=== PATIENT | male | born 1965 | race Caucasian/White ===

== ENCOUNTER → 2018-07-13 09:09 | Outpatient (CLI) | payer MEDICARE, MEDICAID, SELFPAY ==
--- NOTE | 2018-07-13 09:15 | XR_ITS ---
XR shoulder LT min 2V HISTORY: ITS.REASON: left shoulder pain ORDERING PHYSICIAN: Anne Ambrocio MD PATIENT AGE: 53 years Comparison: None FINDINGS: No fracture or dislocation. No lytic or blastic change. There is normal mineralization. The joint spaces are well-preserved. No significant degenerative/arthritic changes. No erosive changes evident. Small subcortical lucencies are present at the greater tuberosity which may be seen with inflammatory change and rotator cuff disease. No subacromial stenosis. IMPRESSION: Subcortical lucencies of the greater tuberosity consistent with underlying inflammatory/arthritic change otherwise negative left shoulder
--- NOTE | 2018-07-13 09:15 | XR_ITS ---
XR shoulder RT min 2V HISTORY: ITS.REASON: right shoulder pain ORDERING PHYSICIAN: Anne Ambrocio MD PATIENT AGE: 53 years Comparison: None TECHNIQUE: 4 views obtained including axillary view FINDINGS: No fracture or dislocation. No lytic or blastic change. There is normal mineralization. The joint spaces are well-preserved. No significant degenerative/arthritic changes. No erosive changes evident. IMPRESSION: Negative, no acute finding
--- NOTE | 2018-07-13 10:57 | XR_ITS ---
EXAM: XR cervical spine 2V HISTORY: Cervicalgia, bilateral shoulder pain ITS.REASON: AP LAT ORDERING PHYSICIAN: Anne Ambrocio MD PATIENT AGE: 53 years COMPARISON: None FINDINGS: There is slight reversal of the cervical lordosis. Degenerative disc disease is present at C4-C5 C5-C6 and C6-C7 with decrease in the disc space and endplate osteophytes. No fracture or dislocation. No lytic or blastic change. Incidental note made of craniotomy. IMPRESSION: Mild degenerative disc disease with slight reversal lordosis which may be due to patient positioning or muscle spasm
== END ==
PROVIDERS: PCP Internal Medicine Adolescent Medicine; Visit Provider Orthopaedic Surgery
DX: M25.511 Pain in right shoulder (principal); M25.512 Pain in left shoulder; M54.2 Cervicalgia
CPT/HCPCS: 72040; 73030

== ENCOUNTER → 2018-10-30 11:49 | Outpatient (CLI) | payer MEDICARE, MEDICAID, SELFPAY ==
[2018-10-30 12:02] LABS: Basophils # 0.1 K/mm3 (0-0.2); Basophils % 0.8 % (0.1-2.0); Eosinophils # 0.4 K/mm3 (0.0-0.4); Eosinophils % 4.4 % (0.1-12.0); Hematocrit 44.8 % (42.0-52.0); Hemoglobin 14.2 g/dL (14.1-18.0); Lymphocytes # 2.2 K/mm3 (0.7-4.5); Lymphocytes % 21.4 % (10-50); Mean Corpuscular HGB Conc 31.7 g/dL (31.8-35.4); Mean Corpuscular Volume 91.4 fl (80-94); Mean Platelet Volume 10.2 fl (7.4-10.4); Monocytes # 0.5 K/mm3 (0.1-1.0); Monocytes % 4.5 % (1.7-9.3); Platelet Count 166 K/mm3 (142-424); White Blood Count 10.1 K/mm3 (4.8-10.8)
[2018-10-30 12:41] LABS: Alanine Aminotransferase 30 U/L (12-78); Albumin Level 3.7 gm/dL (3.4-5.0); Albumin/Globulin Ratio 1.1 (1.1-1.8); Alkaline Phosphatase 202 U/L (46-116); Anion Gap 13.2 mEq/L (5-15); Aspartate Amino Transferase 11 U/L (15-37); Bilirubin,Total 0.4 mg/dL (0.2-1.0); Blood Urea Nitrogen 20 mg/dL (7-18); Calcium 8.9 mg/dL (8.5-10.1); Carbon Dioxide 28 mmol/L (21.0-32.0); Chloride 105 mmol/L (98-107); Chol/HDL Ratio 4.3 (1-3.5); Cholesterol 136 mg/dL (140-200); Creatinine,Serum 1.19 mg/dL (0.70-1.30); Estimated Glomerular Filt Rate 64 ml/min (>60); GFR (African American) 78 ML/MIN (>60); Globulin 3.5 gm/dl (1.3-3.2); Glucose 86 mg/dL (74-106); HDL Cholesterol 32 mg/dL (27-67); LDL Cholesterol 89 mg/dL (0-130); Potassium 4.2 mmoL/L (3.5-5.1); Sodium 142 mmol/L (136-145); Thyroid Stimulating Hormone 1.43 uIU/ml (0.358-3.740); Total Protein,Serum 7.2 gm/dL (6.4-8.2); Triglycerides 76 mg/dL (30-200); VLDL Cholesterol 15 mg/dL (0-40)
[2018-10-30 14:03] LABS: Hemoglobin A1C 6.5 % (0.0-7.0)
== END ==
PROVIDERS: Visit Provider Internal Medicine Adolescent Medicine
DX: E78.5 Hyperlipidemia, unspecified (principal); E11.69 Type 2 diabetes mellitus with other specified complication; R53.81 Other malaise
CPT/HCPCS: 36415; 80053; 80061; 83036; 84443; 85025

== ENCOUNTER → 2019-11-16 11:55 | Outpatient (CLI) | payer MEDICARE, MEDICAID, SELFPAY ==
[2019-11-16 15:12] LABS: Basophils # 0.1 K/mm3 (0-0.2); Basophils % 0.9 % (0.1-2.0); Eosinophils # 0.3 K/mm3 (0.0-0.4); Eosinophils % 4.3 % (0.1-12.0); Hematocrit 41.4 % (42.0-52.0); Hemoglobin 13.7 g/dL (14.1-18.0); Lymphocytes # 2.2 K/mm3 (0.7-4.5); Lymphocytes % 31.7 % (10-50); Mean Corpuscular Hemoglobin 30.1 pg (27.0-31.2); Mean Corpuscular Volume 91.3 fl (80-94); Mean Platelet Volume 10.2 fl (7.4-10.4); Monocytes # 0.3 K/mm3 (0.1-1.0); Monocytes % 3.7 % (1.7-9.3); Neutrophils # 4.1 K/mm3 (1.8-7.8); Neutrophils % 59.2 % (37.0-80.0); Platelet Count 172 K/mm3 (142-424); Red Blood Count 4.54 M/mm3 (4.60-6.20); White Blood Count 6.9 K/mm3 (4.8-10.8)
[2019-11-16 16:04] LABS: Alanine Aminotransferase 36 U/L (12-78); Albumin Level 4.4 g/dl (3.5-5.0); Albumin/Globulin Ratio 1.4 (1.1-1.8); Alkaline Phosphatase 158 U/L (38-126); Anion Gap 11.9 mEq/L (5-15); Aspartate Amino Transferase 28 U/L (17-59); Bilirubin,Total 0.2 mg/dl (0.2-1.3); Blood Urea Nitrogen 28 mg/dl (9-20); Calcium 9.6 mg/dl (8.4-10.2); Carbon Dioxide 28 mmol/L (22.0-30.0); Chloride 101 mmol/L (98-107); Estimated Glomerular Filt Rate 70 ml/min (>60); GFR (African American) 85 ML/MIN (>60); Globulin 3.1 g/dL (1.3-3.2); Glucose 218 mg/dl (74-100); Potassium 4.9 mmoL/L (3.5-5.1); Sodium 136 mmol/L (136-145); Total Protein,Serum 7.5 g/dl (6.3-8.2)
[2019-11-16 16:40] LABS: Ferritin 47.5 ng/ml (17.9-464)
[2019-11-19 14:05] LABS: Folate 6.5 ng/mL (>3.0)
[2019-11-21 08:38] LABS: Vitamin E Alpha Tocopherol 18.5 mg/L (7.0-25.1)
[2019-11-23 11:22] LABS: Vitamin C 0.2 mg/dL (0.2-2.0)
[2019-11-23 11:23] LABS: Vitamin A 66.8 ug/dL (20.1-62.0); Vitamin E Gamma Tocopherol 4.6 mg/L (0.5-5.5)
== END ==
PROVIDERS: Visit Provider Internal Medicine Adolescent Medicine
DX: F50.89 Other specified eating disorder (principal)
CPT/HCPCS: 36415; 80053; 82180; 82728; 82746; 84446; 84590; 85025

== ENCOUNTER → 2020-02-07 10:46 | Outpatient (CLI) | payer MEDICARE, MEDICAID, SELFPAY ==
[2020-02-07 14:15] LABS: Coronavirus 19 IgG Antibody Negative (Negative)
[2020-02-07 14:20] LABS: Coronavirus 19 IgM Antibody Positive (Negative)
[2020-02-09 13:31] LABS: Covid-19 Nasal PCR Sendout Lex Not Detected
== END ==
PROVIDERS: Visit Provider Internal Medicine Gastroenterology
DX: Z01.818 Encounter for other preprocedural examination (principal); U07.1 COVID-19
CPT/HCPCS: 36415; 86328; U0004

== ENCOUNTER → 2020-02-11 17:10 | Outpatient (CLI) | payer MEDICARE, MEDICAID, SELFPAY ==
[2020-02-11 18:47] LABS: Coronavirus 19 IgG Antibody Negative (Negative); Coronavirus 19 IgM Antibody Negative (Negative)
[2020-02-14 06:58] LABS: Covid-19 Nasal PCR Sendout Lex NOT DETECTED
== END ==
PROVIDERS: Visit Provider Internal Medicine Adolescent Medicine
DX: Z20.828 Contact with and (suspected) exposure to other viral communicable diseases (principal)
CPT/HCPCS: 36415; 86328; U0004

== ENCOUNTER → 2020-03-13 10:12 | Outpatient (CLI) | payer MEDICARE, MEDICAID, SELFPAY ==
[2020-03-13 12:06] LABS: Coronavirus 19 IgG Antibody Negative (Negative); Coronavirus 19 IgM Antibody Negative (Negative)
== END ==
PROVIDERS: Visit Provider Internal Medicine Gastroenterology
DX: Z01.818 Encounter for other preprocedural examination (principal)
CPT/HCPCS: 36415; 86328

== ENCOUNTER 2020-03-14 10:08 | Day surgery (SDC) | payer MEDICARE, MEDICAID, SELFPAY ==
[2020-03-10 16:36] VITALS: BMI 34.7
[2020-03-14] VITALS (7 sets, daily range): BP systolic 90–140; BP diastolic 65–81; PULSE 67–75; RESP 18; TEMP 36.3; O2SAT 96–99
--- NOTE | 2020-03-14 12:29 | HMH.ANESCL ---
[facility] Anesthesia Checklist - Patient Identification Patient Identification: Arm Band - Structural Data Admitted From: Home Planned Operative Procedure/s: colonoscopy Consent for Planned Operative Procedure(s) Verified: Yes Verified Documents: Surgical Consent, History and Physical - NPO Status Verified Time NPO: 00:00 - Additional verifications Anesthesia Reactions: No - Airway Assessment C-Spine Mobility Assessed: Yes (mp2) TMJ Mobility Assessed: Yes Dentition: Edentulous - Neurological Assessment Level of Consciousness: Awake, Alert - Anesthesia Plan Anesthesia Risk discussed: Yes Anesthesia Plan: Verified ASA Class: III Anesthesia Type: MAC [facility] History I have reviewed the patient's past medical history: Yes Medical History: Reports:: Chronic Obstructive Pulmonary Disease (COPD), Diabetes Mellitus Type 2, Hyperlipidemia, Transient Ischemic Attacks (TIA) Denies:: Cancer, Diabetes Mellitus Type 1, Internal Pacemaker, MRSA, Seizures *Have you ever received a pneumonia vaccine?: No *Have you received a flu vaccine this season?: Yes Anesthesia experience/problems:: nac Laterality Cases: Left: Other Other Surgeries: Yes: Other (evacuation of subdural hematoma). No: Pacemaker Amputation: No Fractures: No - *Social History Last grade of school completed: High school graduate Smoking Status: Current every day smoker Tobacco Type: cigarettes # Packs/Day (cigarettes): 1 #Yrs smoked (if former smoker): 30 Alcohol Intake: never Substance Use Type: denies use *Occupational Status:: unemployed, disabled Housing: house Household Members: spouse *Travel in the last 8 weeks: None Family Hx:: Diabetes, Heart Attack, Hyperlipidemia, Hypertension, Alcoholism
[2020-03-14 12:35] LABS: POC Glucose,Bedside 158 (70-110)
--- NOTE | 2020-03-14 12:54 | HMH.PROC ---
[facility] Procedure Note Procedure Note:: Colonoscopy Procedure Report: Colonoscopy with cold snare polypectomy Endoscopist: Luke Malcolm II, MD Referring physician: Domenico Blackwell M.D. Date of Procedure: March 14, 2020 Equipment: Olympus 180 variable stiffness pediatric colonoscope Sedation: MAC sedation Indication: Mr. Alonso is a 54-year-old gentleman who is here for initial screening colonoscopy. He reports no abdominal pain, weight loss, change in his bowel habits or rectal bleeding. He reports no family history of colon cancer. Procedure: Prior to the procedure, a history and physical exam was performed, and patient's medications and allergies were reviewed. The risks, benefits and alternatives of the sedation and procedure were discussed with the patient. All questions were answered and informed consent was obtained. The patient was brought to the procedure room. Patient identification and proposed procedure were verified by the physician and the nurse. The patient was placed in a left lateral decubitus position and the scope was passed under direct vision. Throughout the procedure, the patient's blood pressure, pulse, and oxygen saturations were monitored continuously. The colonoscopy was accomplished without difficulty. The patient tolerated the procedure well. Findings: On digital rectal examination there was normal rectal tone. There were no external hemorrhoids. The prostate was 2-3+, smooth, soft, symmetric without nodules. The colonoscope was introduced through the anal canal to the rectum and advanced to the cecum. The ileocecal valve and appendiceal orifice were identified. The scope was advanced a short distance into the ileum which appeared grossly normal. The scope was then withdrawn into the colon. The cecum was normal. There were a total of 9 colon polyps (ascending x1 (3 mm), transverse x2 (4 and 6 mm), descending x2 (5 and 7 mm), sigmoid x3 (3, 4 and 8 mm) and rectum x1 (3 mm)). All of these polyps were removed via cold snare polypectomy. There were no other mucosal abnormalities identified. Upon retroflexion within the rectum there were grade 1-2 internal hemorrhoids.The preparation was excellent throughout with Saxon Preparation Score of 9. The cecal time was 14 minutes. Impression: 1. Colonic polyps x9 2. Grade 1-2 internal hemorrhoids Plan: I will follow up the polyp pathology and recommend repeat colonoscopy again in 2-3 years based upon the polyp histology. I would encourage bulk fiber supplementation on a long-term daily maintenance basis.
== END 2020-03-14 13:46 | disposition home or self-care (01) ==
LOC: OUTP 10:10
PROVIDERS: PCP Internal Medicine Adolescent Medicine; Visit Provider Internal Medicine Gastroenterology
PROC: 0DJD8ZZ Inspection of Lower Intestinal Tract, Via Natural or Artificial Opening Endoscopic (ICD-10-PCS; CPT 45378; principal; 2020-03-14 11:30)
DX: Z12.11 Encounter for screening for malignant neoplasm of colon (principal); K63.5 Polyp of colon; K64.0 First degree hemorrhoids; E11.9 Type 2 diabetes mellitus without complications; J44.9 Chronic obstructive pulmonary disease, unspecified; E78.5 Hyperlipidemia, unspecified; G45.9 Transient cerebral ischemic attack, unspecified; Z72.0 Tobacco use; Z83.3 Family history of diabetes mellitus; Z82.49 Family history of ischemic heart disease and other diseases of the circulatory system; Z83.438 Family history of other disorder of lipoprotein metabolism and other lipidemia; Z81.1 Family history of alcohol abuse and dependence
CPT/HCPCS: 45385; 82962; 88305

== ENCOUNTER → 2020-09-08 11:48 | Outpatient (CLI) | payer MEDICARE, MEDICAID, SELFPAY ==
--- NOTE | 2020-09-08 11:55 | XR_ITS ---
PROCEDURE: XR KNEE RT 3V CLINICAL INDICATION: OSTEOARTHRITIS OF KNEE Knee pain COMPARISON: No exams were available for comparison FINDINGS: No fracture or dislocation. No lytic or blastic change. There is normal mineralization. The joint spaces are well-preserved. No significant degenerative/arthritic changes. No erosive changes evident. Other findings:None. IMPRESSION: No acute findings. Dictated by: Jg Dhaliwal MD 09/08/2020 15:23 Jg Dhaliwal MD in [place] 09/08/2020 15:23
--- NOTE | 2020-09-08 11:55 | XR_ITS ---
PROCEDURE: XR KNEE LT 3V CLINICAL INDICATION: OSTEOARTHRITIS OF KNEE The pain COMPARISON: DX XR KNEE RT 3V from 09/08/2020 FINDINGS: No fracture or dislocation. No lytic or blastic change. There is normal mineralization. There is slight decrease in the knee joint space medially. Minimal spurring noted along posterior patella. Other findings:None. IMPRESSION: Minimal osteoarthritic change Dictated by: Jg Dhaliwal MD 09/08/2020 15:24 Jg Dhaliwal MD in [place] 09/08/2020 15:24
== END ==
PROVIDERS: PCP Internal Medicine Adolescent Medicine; Visit Provider Internal Medicine Adolescent Medicine
DX: M17.0 Bilateral primary osteoarthritis of knee (principal)
CPT/HCPCS: 73562

== ENCOUNTER → 2020-11-19 11:42 | Outpatient (CLI) | payer MEDICARE, MEDICAID, SELFPAY ==
--- NOTE | 2020-11-19 11:51 | XR_ITS ---
PROCEDURE: XR KNEE RT 4V CLINICAL INDICATION: right knee pain COMPARISON: DX XR KNEE RT 3V from 09/08/2020 DX XR KNEE LT 3V from 09/08/2020 FINDINGS: No fracture or dislocation. No lytic or blastic change. There is normal mineralization. The joint spaces are well-preserved. No significant degenerative/arthritic changes. No erosive changes evident. Other findings:None. IMPRESSION: No acute findings. Dictated by: Jg Dhaliwal MD 11/19/2020 12:39 Jg Dhaliwal MD in [place] 11/19/2020 12:41
--- NOTE | 2020-11-19 11:51 | XR_ITS ---
PROCEDURE: XR KNEE LT 4V CLINICAL INDICATION: left knee pain; weightbearing COMPARISON: DX XR KNEE RT 3V from 09/08/2020 DX XR KNEE LT 3V from 09/08/2020 FINDINGS: Minimal spurring along the posterior aspect of the patella laterally. There may be a small suprapatellar effusion. Small enthesophyte is present at the quadriceps insertion the patella. No acute fracture or dislocation. No lytic or blastic change Other findings:None. IMPRESSION: Minimal osteoarthritic changes with possible small knee joint effusion. Dictated by: Jg Dhaliwal MD 11/19/2020 12:52 Jg Dhaliwal MD in [place] 11/19/2020 12:52
--- NOTE | 2020-11-19 13:55 | XR_ITS ---
PROCEDURE: XR HIP LT 2-3V W/PELVIS CLINICAL INDICATION: bilateral knee pain Pain COMPARISON: No exams were available for comparison FINDINGS: Small sclerotic focus is present in the inter trochanteric region of the left hip consistent with small bone island. No fracture or dislocation. No lytic or blastic change. No significant degenerative change. Small bone islands are also present in the right ischium and inferior pubic ramus. IMPRESSION: No acute findings. Dictated by: Jg Dhaliwal MD 11/19/2020 15:45 Jg Dhaliwal MD in [place] 11/19/2020 15:45
--- NOTE | 2020-11-19 13:55 | XR_ITS ---
PROCEDURE: XR HIP RT 2-3V W/PELVIS CLINICAL INDICATION: bilateral knee pain Hip pain COMPARISON: No exams were available for comparison FINDINGS: No fracture or dislocation is evident. No significant degenerative change. No lytic or blastic change. Unremarkable soft tissues. IMPRESSION: No acute findings. Dictated by: Jg Dhaliwal MD 11/19/2020 15:46 Jg Dhaliwal MD in [place] 11/19/2020 15:46
== END ==
PROVIDERS: PCP Internal Medicine Adolescent Medicine; Visit Provider Orthopaedic Surgery
DX: M25.562 Pain in left knee (principal); M25.561 Pain in right knee; M25.551 Pain in right hip; M25.552 Pain in left hip
CPT/HCPCS: 73502; 73564

== ENCOUNTER → 2021-02-09 10:44 | Outpatient (CLI) | payer MEDICARE, MEDICAID, SELFPAY ==
[2021-02-09 11:31] LABS: Basophils # 0.1 K/mm3 (0-0.2); Basophils % 1.1 % (0.1-2.0); Eosinophils # 0.4 K/mm3 (0.0-0.4); Hematocrit 45.2 % (42.0-52.0); Hemoglobin 15.6 g/dL (14.1-18.0); Lymphocytes # 2.5 K/mm3 (0.7-4.5); Lymphocytes % 29.8 % (10-50); Mean Corpuscular HGB Conc 34.5 g/dL (31.8-35.4); Mean Corpuscular Hemoglobin 30.4 pg (27.0-31.2); Mean Corpuscular Volume 88.2 fl (80-94); Mean Platelet Volume 10.2 fl (7.4-10.4); Monocytes # 0.3 K/mm3 (0.1-1.0); Monocytes % 3.7 % (1.7-9.3); Neutrophils # 5.1 K/mm3 (1.8-7.8); Neutrophils % 60.3 % (37.0-80.0); Platelet Count 147 K/mm3 (142-424); Red Blood Count 5.13 M/mm3 (4.60-6.20); Red Cell Distribution Width 14.2 % (11.5-17.5); White Blood Count 8.4 K/mm3 (4.8-10.8)
[2021-02-09 11:53] LABS: Hemoglobin A1C 7.8 % (4.0-6.0)
[2021-02-09 12:12] LABS: Alanine Aminotransferase 31 U/L (12-78); Albumin Level 4.6 g/dl (3.5-5.0); Albumin/Globulin Ratio 1.5 (1.1-1.8); Alkaline Phosphatase 189 U/L (38-126); Anion Gap 10.8 mEq/L (5-15); Aspartate Amino Transferase 29 U/L (17-59); Bilirubin,Total 0.6 mg/dl (0.2-1.3); Blood Urea Nitrogen 26 mg/dl (9-20); Calcium 8.8 mg/dl (8.4-10.2); Carbon Dioxide 24 mmol/L (22.0-30.0); Chloride 108 mmol/L (98-107); Chol/HDL Ratio 8.7 (1-3.5); Cholesterol 306 mg/dl (140-200); Estimated Glomerular Filt Rate 63 ml/min (>60); GFR (African American) 76 ML/MIN (>60); Globulin 3.1 g/dL (1.3-3.2); Glucose 181 mg/dl (74-100); HDL Cholesterol 35 mg/dl (40-60); Potassium 4.8 mmoL/L (3.5-5.1); Sodium 138 mmol/L (136-145); Total Protein,Serum 7.7 g/dl (6.3-8.2)
[2021-02-09 12:25] LABS: Direct LDL Cholesterol 174.13 mg/dL (100-129)
[2021-02-09 12:28] LABS: Triglycerides 656 mg/dl (30-150)
[2021-02-09 12:45] LABS: Thyroid Stimulating Hormone 1.09 uIU/mL (0.465-4.68)
== END ==
PROVIDERS: Visit Provider Internal Medicine Adolescent Medicine
DX: E11.9 Type 2 diabetes mellitus without complications (principal); E78.5 Hyperlipidemia, unspecified; G63 Polyneuropathy in diseases classified elsewhere; Z79.4 Long term (current) use of insulin
CPT/HCPCS: 36415; 80053; 80061; 83036; 84443; 85025

== ENCOUNTER → 2021-04-01 12:33 | Outpatient (CLI) | payer MEDICARE, MEDICAID, SELFPAY ==
[2021-04-01 13:22] LABS: Potassium 5.2 mmoL/L (3.5-5.1)
[2021-04-01 13:24] LABS: Blood Urea Nitrogen 29 mg/dl (9-20); Estimated Glomerular Filt Rate 53 ml/min (>60); GFR (African American) 64 ML/MIN (>60)
[2021-04-01 13:25] LABS: Calcium 9.4 mg/dl (8.4-10.2)
[2021-04-01 13:34] LABS: Glucose 426 mg/dl (74-100)
[2021-04-01 14:33] LABS: Vitamin B12 709 pg/mL (239-931)
[2021-04-01 14:39] LABS: Folate 6.33 ng/mL
[2021-04-01 17:49] LABS: Anion Gap 14.2 mEq/L (5-15); Carbon Dioxide 26 mmol/L (22.0-30.0); Chloride 101 mmol/L (98-107); Sodium 136 mmol/L (136-145)
== END ==
PROVIDERS: Nurse Practitioner Family; Visit Provider Specialist
DX: E78.5 Hyperlipidemia, unspecified (principal); G47.19 Other hypersomnia; R06.83 Snoring; R42 Dizziness and giddiness; R46.89 Other symptoms and signs involving appearance and behavior; Z86.69 Personal history of other diseases of the nervous system and sense organs; Z86.79 Personal history of other diseases of the circulatory system
CPT/HCPCS: 36415; 80048; 82607; 82746

== ENCOUNTER → 2021-04-02 09:50 | Outpatient (CLI) | payer MEDICARE, MEDICAID, SELFPAY ==
--- NOTE | 2021-04-02 09:50 | MR_ITS ---
PROCEDURE: MR HEAD/BRAIN WO/W CON CLINICAL INDICATION: special attn brain stem and inner ear Tremors in rt arm. Slurred speech and stuttering. Balance issues. Headaches x3wks. Previous brain surgery for subdural hematoma. COMPARISON: CT HDW CT HEAD W/ CONTRAST from 05/17/2016 TECHNIQUE: Routine multiplanar multi echo sequences are performed without and with gadolinium enhancement. FINDINGS: No midline shift, mass effect, intracranial hemorrhage, or hydrocephalus is evident. The cerebellopontine angles, cerebellum, and brainstem have an unremarkable appearance. There are few nonspecific T2 white matter hyperintensities in the frontal and parietal lobes. These areas do not demonstrate restricted diffusion or contrast enhancement. No enhancing lesions are evident. Thin section pre and post axial and coronal images and thin section axial T2 are obtained of the cerebellopontine angles. The 7th and 8th nerve complexes have an unremarkable appearance on both sides. No abnormal enhancement. No CP angle mass. There is a minimal amount fluid within the mastoid sinus on both sides. There is mucosal thickening of the left maxillary sinus with a retention cyst on the left posteriorly at 13 mm and 1 laterally at 7 mm. Mild mucosal thickening involves the ethmoid sinuses and the sphenoid sinus on the right. The pituitary, optic chiasm, corpus callosum, and craniocervical junction have an unremarkable appearance. There has been a prior left-sided frontal parietal craniotomy. IMPRESSION: 1. No acute intracranial findings. 2. No CP angle mass. 3. Minimal amount fluid in the mastoid sinuses and minimal paranasal sinus disease. Dictated by: Jg Dhaliwal MD 04/03/2021 10:54 Jg Dhaliwal MD in [place] 04/03/2021 10:54
== END ==
PROVIDERS: PCP Internal Medicine Adolescent Medicine; Visit Provider Specialist
DX: E78.5 Hyperlipidemia, unspecified (principal); G47.19 Other hypersomnia; R06.83 Snoring; R42 Dizziness and giddiness; R46.89 Other symptoms and signs involving appearance and behavior; Z86.69 Personal history of other diseases of the nervous system and sense organs; Z86.79 Personal history of other diseases of the circulatory system
CPT/HCPCS: 70553; A9576

== ENCOUNTER → 2021-04-15 18:09 | Outpatient (CLI) | payer MEDICARE, MEDICAID, SELFPAY ==
[2021-04-15 11:35] LABS: Coronavirus 19, PCR Not Detected (NotDetected); Influenza A, PCR Not Detected (NotDetected); Influenza B, PCR Not Detected (NotDetected)
== END ==
PROVIDERS: Specialist; Visit Provider Nurse Practitioner Family
DX: Z20.822 Contact with and (suspected) exposure to COVID-19 (principal)
CPT/HCPCS: U0003

== ENCOUNTER → 2021-04-15 19:47 | Outpatient (CLI) | payer MEDICARE, MEDICAID, SELFPAY | PROVIDERS: PCP Internal Medicine Adolescent Medicine; Visit Provider Nurse Practitioner Family | DX: Z01.812 Encounter for preprocedural laboratory examination (principal); Z11.52 Encounter for screening for COVID-19; G47.30 Sleep apnea, unspecified; R06.83 Snoring | CPT/HCPCS: 95810; U0003 ==

== ENCOUNTER → 2021-04-20 09:39 | Outpatient (CLI) | payer MEDICARE, MEDICAID, SELFPAY | PROVIDERS: PCP Internal Medicine Adolescent Medicine; Visit Provider Specialist | DX: R46.89 Other symptoms and signs involving appearance and behavior (principal); R42 Dizziness and giddiness; E78.5 Hyperlipidemia, unspecified; G47.19 Other hypersomnia; R06.83 Snoring; Z86.79 Personal history of other diseases of the circulatory system; Z86.69 Personal history of other diseases of the nervous system and sense organs | CPT/HCPCS: 95816; 95819 ==

== ENCOUNTER → 2021-04-23 09:06 | Outpatient (CLI) | payer MEDICARE, MEDICAID, SELFPAY ==
[2021-04-23 09:31] LABS: Anion Gap 13.9 mEq/L (5-15); Blood Urea Nitrogen 21 mg/dl (9-20); Calcium 9.2 mg/dl (8.4-10.2); Carbon Dioxide 29 mmol/L (22.0-30.0); Chloride 101 mmol/L (98-107); Estimated Glomerular Filt Rate 70 ml/min (>60); GFR (African American) 84 ML/MIN (>60); Glucose 330 mg/dl (74-100); Potassium 4.9 mmoL/L (3.5-5.1); Sodium 139 mmol/L (136-145)
== END ==
PROVIDERS: Visit Provider Nurse Practitioner Family
DX: E87.5 Hyperkalemia (principal); R73.9 Hyperglycemia, unspecified
CPT/HCPCS: 36415; 80048

== ENCOUNTER → 2021-06-26 12:49 | Outpatient (CLI) | payer MEDICARE, MEDICAID, SELFPAY ==
--- NOTE | 2021-06-26 12:51 | CA_ITS ---
APPROVED REPORT Respiratory Director: Verona Trotter RVT Laterality: Bilateral Study Quality: Good Indications: Dizziness and Vertigo Risk Factors Hypertension: Hyperlipidemia Smoking Doppler Spectral Velocity Analysis ECA (R) 82.30/13.90 cm/s ECA (L) 96.20/13.90 cm/s dICA (R) 59.90/21.40 cm/s dICA (L) 89.80/22.50 cm/s Edilberto (R) 70.60/23.50 cm/s Edilberto (L) 56.70/22.50 cm/s pICA (R) 71.60/21.40 cm/s pICA (L) 65.20/16.00 cm/s dCCA (R) 61.00/15.00 cm/s dCCA (L) 51.30/12.80 cm/s pCCA (R) 69.50/12.80 cm/s pCCA (L) 74.90/11.80 cm/s Vert (R) 48.10/20.30 cm/s Vert (L) 43.80/13.90 cm/s ICA/CCA 1.18 ICA/CCA 1.75 Findings Study suggests 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 Study suggests 20-49% stenosis of the left internal cartoid artery. Antegrade flow seen bilateral vertebral arteries. 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 Study suggests 20-49% stenosis of the left internal cartoid artery. Antegrade flow seen bilateral vertebral arteries. Electronically signed by : Jg Dhaliwal MD 06/26/2021 15:36:35
== END ==
PROVIDERS: PCP Internal Medicine Adolescent Medicine; Visit Provider Nurse Practitioner Family
DX: E78.5 Hyperlipidemia, unspecified (principal); G47.19 Other hypersomnia; R06.83 Snoring; R42 Dizziness and giddiness; R46.89 Other symptoms and signs involving appearance and behavior; Z86.69 Personal history of other diseases of the nervous system and sense organs; Z86.79 Personal history of other diseases of the circulatory system
CPT/HCPCS: 93880

== ENCOUNTER → 2021-07-15 14:59 | Outpatient (CLI) | payer MEDICARE, MEDICAID, SELFPAY ==
[2021-07-15 17:22] LABS: 25-OH Vitamin D, Total 19.9 ng/mL (30-100)
== END ==
PROVIDERS: Visit Provider Otolaryngology
DX: Z86.79 Personal history of other diseases of the circulatory system (principal); E55.9 Vitamin D deficiency, unspecified
CPT/HCPCS: 36415; 82306

== ENCOUNTER → 2021-08-17 11:06 | Outpatient (CLI) | payer MEDICARE, MEDICAID, SELFPAY ==
[2021-08-17 11:36] LABS: Basophils # 0.1 K/mm3 (0-0.2); Basophils % 1.2 % (0.1-2.0); Eosinophils # 0.2 K/mm3 (0.0-0.4); Eosinophils % 4.8 % (0.1-12.0); Hematocrit 47.2 % (42.0-52.0); Hemoglobin 15.6 g/dL (14.1-18.0); Lymphocytes # 1.2 K/mm3 (0.7-4.5); Mean Corpuscular Hemoglobin 30.2 pg (27.0-31.2); Mean Corpuscular Volume 91.6 fl (80-94); Mean Platelet Volume 9.8 fl (7.4-10.4); Monocytes # 0.2 K/mm3 (0.1-1.0); Monocytes % 5.1 % (1.7-9.3); Neutrophils # 2.1 K/mm3 (1.8-7.8); Neutrophils % 55.8 % (37.0-80.0); Platelet Count 100 K/mm3 (142-424); Red Blood Count 5.16 M/mm3 (4.60-6.20); Red Cell Distribution Width 13.6 % (11.5-17.5); White Blood Count 3.8 K/mm3 (4.8-10.8)
[2021-08-17 12:59] LABS: Alanine Aminotransferase 38 U/L (12-78); Albumin Level 4.3 g/dl (3.5-5.0); Albumin/Globulin Ratio 1.5 (1.1-1.8); Alkaline Phosphatase 215 U/L (38-126); Anion Gap 11.5 mEq/L (5-15); Aspartate Amino Transferase 31 U/L (17-59); Bilirubin,Total 0.4 mg/dl (0.2-1.3); Blood Urea Nitrogen 17 mg/dl (9-20); Calcium 9.3 mg/dl (8.4-10.2); Carbon Dioxide 29 mmol/L (22.0-30.0); Chloride 101 mmol/L (98-107); Chol/HDL Ratio 7.1 (1-3.5); Cholesterol 263 mg/dl (140-200); Estimated Glomerular Filt Rate 69 ml/min (>60); GFR (African American) 84 ML/MIN (>60); Globulin 2.8 g/dL (1.3-3.2); Glucose 252 mg/dl (74-100); HDL Cholesterol 37 mg/dl (40-60); Potassium 4.5 mmoL/L (3.5-5.1); Sodium 137 mmol/L (136-145); Total Protein,Serum 7.1 g/dl (6.3-8.2); Triglycerides 183 mg/dl (30-150); VLDL Cholesterol 37 mg/dL (0-40)
[2021-08-17 13:10] LABS: Direct LDL Cholesterol 179.55 mg/dL (100-129)
== END ==
PROVIDERS: Visit Provider Internal Medicine Adolescent Medicine
DX: E11.9 Type 2 diabetes mellitus without complications (principal); E78.5 Hyperlipidemia, unspecified; Z79.4 Long term (current) use of insulin
CPT/HCPCS: 36415; 80053; 80061; 83036; 85025

== ENCOUNTER → 2021-11-25 07:52 | Outpatient (CLI) | payer MEDICARE, MEDICAID, SELFPAY ==
--- NOTE | 2021-11-25 07:56 | CT_ITS ---
FINAL REPORT CLINICAL HISTORY: H/O NICOTINE DEPENDENCE smoker, 2 ppd x 40 years. copd, empysema FINDINGS: Low-Dose Chest CT CTDI vol (mGy): 2.90 DLP (mGy-cm): 98.47 Axial images were obtained from the lung apex to the mid abdomen by computed tomography. Low-dose protocol was utilized. FINDINGS: CHEST: There is no axillary adenopathy. There is no hilar or mediastinal adenopathy. The heart is proper size. There is no pericardial or pleural effusion. Limited images of the upper abdomen are unremarkable. Lung window images demonstrate a 3 mm nodule in the left upper lobe, well seen on image 29 of series 4. There is also a 4 mm nodule in the left upper lobe, well seen on image 41 of series 4.. IMPRESSION: Lung RADS category 2. Recommend 12 month follow-up low-dose chest CT. Reviewed, Interpreted and Dictated by Flakito De Paz MD Transcribed by Asya Bermudez Authenticated by Flakito De Paz MD on 11/25/2021 10:28:57 AM [facility]
== END ==
PROVIDERS: PCP Internal Medicine Adolescent Medicine; Visit Provider Internal Medicine Adolescent Medicine
DX: Z87.891 Personal history of nicotine dependence (principal); Z12.2 Encounter for screening for malignant neoplasm of respiratory organs
CPT/HCPCS: 71271

== ENCOUNTER 2024-08-14 14:16 | Outpatient (CLI) | payer MEDICARE, MEDICAID, SELFPAY ==
--- NOTE | 2024-08-14 14:19 | CT_ITS ---
FINAL REPORT TECHNIQUE: Thin section axial images were obtained from the lung apices to the upper abdomen by computed tomography. Reformatted images were obtained and reviewed. This study was performed with techniques to keep radiation doses al low as reasonably achievable (ALARA). Individualized dose reduction techniques using automated exposure control or adjustment of mA and/or kV according to the patient's size were employed. CLINICAL HISTORY: SCREENING CURRENT SMOKER 2 PPD X 40 YEARS COMPARISON: 11/25/2021 FINDINGS: CHEST CT LOW DOSE 59-year-old male, current smoker, [id number] history. CTDI vol (mGy): 2.90 DLP (mGy-cm): 114.11 There is no axillary adenopathy. There is no mediastinal or hilar mass or adenopathy. The heart is normal in size. Mild coronary artery calcifications are present. There is no pericardial or pleural effusion. There is mild emphysema. Lung window images demonstrate that the small left upper lobe nodules seen on the prior LDCT of 11/25/2021 are not visualized on today's examination. There is a new right lower lobe nodule, measuring 4 mm in size, best seen on image #56 of series 3. There is a 10 mm lobular nodule at the left lung base just adjacent to the hemidiaphragm, with eccentric calcification, also seen on the prior CT and stable. This is best seen on image #69 of series 3, and is consistent in appearance with a benign nodule. Limited images of the upper abdomen are unremarkable. IMPRESSION: Lung-RADS category 2. Recommend 12 month follow up low dose chest CT. Reviewed, Interpreted and Dictated by Trevor Barraza III, MD Transcribed by Steffanie Allen Authenticated and . [facility]
== END 2024-08-14 23:59 | disposition home or self-care (01) ==
LOC: RAD 14:17
PROVIDERS: PCP Internal Medicine Adolescent Medicine; Visit Provider Internal Medicine Adolescent Medicine
DX: F17.210 Nicotine dependence, cigarettes, uncomplicated (principal)
CPT/HCPCS: 71271

== ENCOUNTER 2024-10-12 06:20 | Day surgery (SDC) | payer MEDICARE, MEDICAID, SELFPAY ==
--- NOTE | 2024-10-09 10:28 | SUR.PREOP ---
10/09/24- LM for patient to call back for pre op
[2024-10-10 09:49] VITALS: BMI 34.2
[2024-10-12 06:39] VITALS: BP 119/72; PULSE 82; RESP 16; TEMP 36.4; O2SAT 95
[2024-10-12] MEDS: LACTATED RINGERS 1000ML 1,000 ML 50 ML IV (06:51)
[2024-10-12 07:01] LABS: POC Glucose,Bedside 69 (70-110)
--- NOTE | 2024-10-12 07:07 | HMH.SCOPE ---
Procedure: Date: 10/12/24 Patient Date of :: 1965 Procedure Performed:: Total colonoscopy to terminal ileum with a biopsies and polypectomy using biopsy forceps and cold and hot snare Indications:: Patient is a 59-year-old male who presents for follow-up colonoscopy due to history of polyps. Patient lives in [facility]. He underwent initial screening colonoscopy with Dr. Malcolm on 03/14/2020 and had 6 tubular adenomas removed and a sessile serrated adenoma. Recommendation was for follow-up colonoscopy in 2 to 3 years. Apparently the patient had another colonoscopy in September 2023 at [facility]. Patient states that he had polyps and he was told that they were not all removed. Denies family history of colon cancer. I have obtained the report from [facility] where patient had colonoscopy on 09/16/2023. He was found to have multiple polyps. He had 5 to 10 mm sessile polyp in the ascending colon which was removed with hot snare. At the hepatic flexure there were 4 additional polyps between 5 and 10 mm. These were all removed with hot snare. There was a transverse colon polyp removed with hot snare and in the rectosigmoid region there was a 1 cm somewhat pedunculated polyp removed with hot snare. There were a few left-sided small colonic polyps which were left in situ. Repeat colonoscopy was recommended for 1 year since polyps were left in situ. Pathology revealed at least 7 tubular adenomas. So the patient had at least 6 tubular adenomas as well as a sessile serrated adenoma on colonoscopy performed on 03/14/2020 and at least 7 tubular adenomas removed on colonoscopy performed on 09/16/2023. . Performing Provider:: Trevor Boogie MD Referring Provider:: Domenico Blackwell MD . Sedation:: MAC sedation . Procedure:: Patient history was obtained and appropriate physical examination was performed. Patient's medications and allergies were reviewed. Informed consent was obtained after explaining the benefits, alternatives, and risks of the procedure including, but not limited to, bleeding, perforation, missed lesions, and adverse reaction to anesthesia medications. Patient was transported to endoscopy procedure room. Patient was connected to monitoring devices. Throughout the procedure the patient's blood pressure, pulse, and oxygen saturations were monitored continuously. Patient identification and planned procedure were verified by the staff. Patient was positioned in lateral decubitus position. Digital anorectal exam was performed. Variable stiffness Olympus colonoscope was inserted and advanced under direct visualization to the cecum. Adequacy of the colonic preparation was noted. The colonoscope was advanced a short distance into the terminal ileum. The colonoscope was then slowly withdrawn while carefully examining the color, texture, anatomy, and integrity of the mucosoa circumferentially. Within the rectum retroflexion was performed. Colonoscope was then withdrawn. Impression: There was some liquid and some loose stool in the colon but this was able to be cleared with high-volume trans colonoscopic irrigation and suctioning. In the terminal ileum there was some findings of very minuscule ileitis characterized by some erythema of the villi. Biopsies were obtained. In the descending colon there was a tiny diminutive polyp which appeared adenomatous. This was removed with cold snare. There were several adjacent hyperplastic appearing polyps removed with biopsy forceps. There were some rare sigmoid diverticulosis. There were several rectosigmoid polyps mostly removed with biopsy forceps. These appeared hyperplastic. In the rectum there were a few larger polyps which actually appeared hyperplastic but due to their larger size they were removed with hot snare x 2 with 1 removed with cold snare. . Findings:: Left-sided colon Polyps as noted above Mild terminal ileitis Rare sigmoid diverticulosis . Recommendations:: Follow-up colonoscopy will be pending pathology and after obtaining the results from his colonoscopy 1 year ago and [facility]. Complications:: None immediately apparent Estimated blood obtained (mL): 2 Colonoscopy Component Colonoscopy Component Was a colonoscopy performed during today's procedure?: Yes Recommended follow up colonoscopy of at least 10 years?: No If no, follow up colonoscopy recommended in ___ years?: See above Reason for not recommending >/= 10 yr follow-up interval?: See above
[2024-10-12 07:19] VITALS: O2SAT 98
[2024-10-12 08:06] VITALS: BP 97/55; PULSE 79; RESP 16; TEMP 36.5; O2SAT 95
[2024-10-12 08:12] LABS: POC Glucose,Bedside 72 (70-110)
[2024-10-12 08:12] LABS: POC Glucose,Bedside 72 (70-110)
[2024-10-12 08:12] LABS: POC Glucose,Bedside 75 (70-110)
[2024-10-12 08:16] VITALS: BP 103/65; PULSE 73; RESP 17; O2SAT 99
[2024-10-12 08:26] VITALS: BP 117/67; PULSE 73; RESP 17; O2SAT 98
[2024-10-12 08:36] VITALS: BP 119/72; PULSE 72; RESP 17; O2SAT 99
--- NOTE | 2024-10-12 08:54 | EXP.ANES.CKL ---
[facility] Disclaimer: The information contained in this section may have been updated after the patient was seen, as this information can be updated by other users. Medical History Left ear impacted cerumen Loss of balance Vertigo Hearing loss, left Bilateral tinnitus Hearing loss of right ear Surgical History History of cranial surgery Family History (Updated 10/12/24 @ 06:47 by Rema Cowan RN) Other Thyroid disorder Social History (Updated 10/12/24 @ 06:48 by Rema Cowan RN) Smoking Status: Current every day smoker tobacco type: cigarettes packs per day: 1 second hand exposure: Yes alcohol intake: former substance use type: denies use current occupational status: disabled Travel in the last 8 weeks: None household members: spouse housing: house number of children: 3 current occupational exposures/hazards: No caffeine: Yes [facility] Anesthesia Checklist Patient Identification Patient Identification: Arm Band and Verbal (Name & ) Structural Data Admitted From: Home Planned Operative Procedure/s: colonoscopy Consent for Planned Operative Procedure(s) Verified: Yes Verified Documents: Surgical Consent NPO Status Verified Time NPO: 00:00 Additional verifications Fingerstick Blood Glucose: 72 Patient : No Anesthesia Reactions: No Cardiovascular Assessment Heart Sounds: S1 & S2 Pulse Strength: Baseline Pulse Rhythm: Regular Peripheral Edema: No Airway Assessment Mallampati Score:: Class I C-Spine Mobility Assessed: Yes Dentition: Edentulous Neurological Assessment Level of Consciousness: Awake and Alert Hx Seizures: No Numbness or tingling in extremities: No Anesthesia Plan Anesthesia Risk discussed: Yes ASA Class: III Anesthesia Type: MAC
== END 2024-10-12 08:40 | disposition home or self-care (01) ==
PROVIDERS: PCP Internal Medicine Adolescent Medicine; Visit Provider Surgery
PROC: 0DJD8ZZ Inspection of Lower Intestinal Tract, Via Natural or Artificial Opening Endoscopic (ICD-10-PCS; CPT 45380; principal; 2024-10-12 07:30)
DX: K63.5 Polyp of colon (principal); K50.00 Crohn's disease of small intestine without complications; K57.30 Diverticulosis of large intestine without perforation or abscess without bleeding; Z86.0100 Personal history of colon polyps, unspecified
CPT/HCPCS: 45380; 45385; 82962; J7120

== ENCOUNTER 2025-01-25 08:41 | Outpatient (CLI) | payer MEDICARE, MEDICAID, SELFPAY ==
--- OUTSIDE RECORDS SUMMARY | 2025-01-25 08:43 | XMS_ITS | Continuity of Care Document ---
Author Organization [facility] Phone Care Team Providers Care Time Motion Analyst Name Role Phone JUAN MANUEL MULLINS Primary Care JUAN MANUEL MULLINS Primary Attending [phone] JUAN MANUEL MULLINS Unavailable JUAN MANUEL MULLINS Admitting ALLERGIES AND ADVERSE REACTIONS ALLERGIES AND ADVERSE REACTIONS Code System Allergy Substance Adverse Reaction Date Reaction (Severity) Comment Status Reported By Updated By No Known Allergies [id number] on September 02, 2021 10:46:58 PM [facility] FAMILY HISTORY RELATION: Father Status: Cause of : Congestive heart failure Age at : Unknown SNOMED-CT Diagnosis Age At Onset Information not available RELATION: Mother Status: LIVING SNOMED-CT Diagnosis Age At Onset Information not available RELATION: Son Status: LIVING SNOMED-CT Diagnosis Age At Onset Information not available RELATION: Son Status: LIVING SNOMED-CT Diagnosis Age At Onset Information not available RELATION: Son Status: LIVING SNOMED-CT Diagnosis Age At Onset Information not available RESULTS Patient: VY Carlisle Date of : 1965 LABORATORY RESULTS Information is not available LABORATORY NARRATIVE RESULTS Information is not available RADIOLOGY RESULTS ORDER 200: CERVICL 5V (LOINC : [id number]) ORDER DATE: December 20, 2024 3:09:00 PM [facility] PERFORMING LAB: [address] [id number] Final Result Date: December 20, 2024 4:33:[address] [place] [address] Name: DEANDRE MCCLELLAN Exam Date: 12/20/2024 : 1965 Age 59 years Gender: M Physician: JUAN MANUEL MULLINS Facility: [facility] Facility HSV: Outpatient Exam: CERVICL 5V Cervical spine multiple views HISTORY: Right shoulder and neck pain COMPARISON: None available FINDINGS: Uaob-cm-comvdgys degenerative spondylosis in the cervical spine. No fracture or malalignment. There is curve reversal probably due to muscle spasm. No significant soft tissue abnormalities. Mild neural foraminal narrowing noted at C3-4 C4-5 C5-6 on both sides. IMPRESSION: Zgzb-je-fzkkogdg degenerative spondylosis. Electronically signed by: Quiana Herring MD 12/20/2024 03:08 PM EDT RP Dictated By: QUIANA HERRING Transcribed By: Transcribed On: 12/20/2024 12:33 PM Electronically signed by: QUIANA HERRING 12/20/2024 Thank you for referring DEANDRE MCCLELLAN to [facility]. Legally authenticated by NIMA ARAYA MD 2024-12-20 12:33:00 ORDER 400: SHLDR 3V LT (LOIN C: [id number]) ORDER DATE: December 20, 2024 3:33:00 PM [facility] PERFORMING LAB: [address] [id number] Final Result Date: December 20, 2024 4:33:[address] [place] [address] Name: DEANDRE MCCLELLAN Exam Date: 12/20/2024 : 1965 Age 59 years Gender: M Physician: JUAN MANUEL MULLINS Facility: [facility] Facility HSV: Outpatient Exam: SHLDR 3V LT XR SHOULDER 2 OR MORE VIEWS LEFT Reason For Study: fall pain in right shoulder and neck COMPARISON:None TECHNIQUE: 3 views of the left shoulder were obtained. FINDINGS: Mild degenerative changes in the a.c. and glenohumeral joints. Slight deformity of the humeral head possibly from previous Hill-Sachs injury due to dislocation. No acute fracture or dislocation. IMPRESSION: Mild DJD. Electronically signed by: Quiana Herring MD 12/20/2024 03:09 PM EDT RP Dictated By: QUIANA HERRING Transcribed By: Transcribed On: 12/20/2024 12:33 PM Electronically signed by: QUAINA HERRING 12/20/2024 Thank you for referring VY DEANDRE to [facility]. Legally authenticated by NIMA ARAYA MD 2024-12-20 12:33:00 PATHOLOGY NARRATIVE RESULTS Information is not available MICROBIOLOGY RESULTS No Micro Labs/Results Exist for Patient BLOOD ADMIN RESULTS Information is not available MEDICATIONS HOME MEDICATIONS Status RXNORM NDC Medication Dose Route Frequency Dates Comments Reported By Updated By Drug Treatment Unknown DISCHARGE MEDICATIONS Status RXNORM NDC Medication Dose Route Frequency Dates Comments Physician Updated By No Discharge Medication Info rmation Available INPATIENT MEDICATIONS Status RXNORM NDC Medication Dose Route Frequency Rat e Quantity Dates Comments Physician Updated By No Inpatient Medication Info rmation Available SOCIAL HISTORY SOCIAL HISTORY SNOMED-CT Social History Element Description Effective Dates Offered Cessation Comment UpdatedBy [id number] Historical Tobacco smoking status Current Every Day Smoker 1.5 ppd [id number] on September 13, 2023 2:47:54 PM [facility] [id number] Historical Tobacco smoking status Former Smoker Yes 1 1/2 PPD CONVERSION o n September 26, 2013 6:27:22 PM [facility] SOCIAL HISTORY - Gender Sex: Male SOCIAL HISTORY - Status : status i nformation is not available Intention in Next Year: intention information is not available SOCIAL HISTORY - Sexual Behavior Sexual Orientation Gender Identity SNOMED-CT Description SNO MED -CT Description Activity Level No of Partners Partner Type UpdatedBy Information is not available HEALTH CONCERNS Problems Concern Status Health Concern problem infor mation not available. Smoking Status Status Years Used Consumed packs p er day Health Concern smoking histo ry information not available. Family History Concern Status Health Concern family histor y information not available. ENCOUNTERS ENCOUNTER INFORMATION Reason for Visit W19.XXXA Admission December 20, 2024 2:59:[address] [address] Discharge December 20, 2024 2:59:00 PM [facility] DI SCHARGED TO HOME OR SELF CARE ENCOUNTER DIAGNOSES Notes information is not livier ilable. Code System Diagnosis Onset Date Diagnosis information is not available. ABSTRACT DIAGNOSES Code System Diagnosis Updated By M25.511 ICD10 PAIN IN RIGHT SHOULDER [id number] on December 24, 2024 10:15:50 AM [place] M54.2 ICD10 CERVICALGIA [id number] on 2024 10:15:50 AM [facility] M47.812 ICD10 SPONDYLOSIS WITH OUT MYELOPATHY OR RADICULOPATHY, CERVICAL REGION [id number] on December 24, 2024 10:15:50 AM [facility] M19.011 ICD10 PRIMARY OSTEOART HRITIS, RIGHT SHOULDER [id number] on December 24, 2024 10:15:50 AM [place] M25.511 ICD10 PAIN IN RIGHT SHOULDER [id number] on December 24, 2024 10:15:50 AM [place] M54.2 ICD10 CERVICALGIA [id number] on 2024 10:15:50 AM [facility] W19.XXXA ICD10 UNSPECIFIED FALL, INITIAL EN COUNTER [id number] on December 24, 2024 10:15:50 AM [facility] CARE TEAM Care Time Motion Analyst Role JUAN MANUEL MULLINS Primary Care JUAN MANUEL MULLINS Primary Attending JUAN MANUEL MULLINS Referring JUAN MANUEL MULLINS Admitting CARE TEAM CARE superintendent horticulture Role on Team Status Start Date End Date Update d By SUSANNA ZAMBRANO MD PCP normal December 20, 2024 4:00:00 AM [facility] December 20, 2024 2:59:00 PM [facility] [id number] on December 20, 2024 3:00:43 PM [facility] SUSANNA ZAMBRANO MD Referring normal December 20, 2024 4:00:00 AM [facility] December 20, 2024 2:59:00 PM [facility] [id number] on December 20, 2024 3:00:43 PM [facility] SUSANNA ZAMBRANO MD Attending normal December 20, 2024 4:00:00 AM [facility] December 20, 2024 2:59:00 PM [facility] [id number] on December 20, 2024 3:00:43 PM [facility] SUSANNA ZAMBRANO MD Admitting normal December 20, 2024 4:00:00 AM [facility] December 20, 2024 2:59:00 PM [facility] [id number] on December 20, 2024 3:00:43 PM [facility]
--- OUTSIDE RECORDS SUMMARY | 2025-01-25 08:43 | XMS_ITS | Continuity of Care Document ---
Author Organization [facility] [employer] Phone Care Team Providers Care Tax Expert Name Role Phone LIOR ALEMAN Primary Attending LIOR ALEMAN Admitting LIOR ALEMAN Unavailable JUAN MANUEL MULLINS Primary Care ALLERGIES AND ADVERSE REACTIONS ALLERGIES AND ADVERSE REACTIONS Code System Allergy Substance Adverse Reaction Date Reaction (Severity) Comment Status Reported By Updated By No Known Allergies [id number] on January 10, 2025 8:54:20 PM [facility] FAMILY HISTORY RELATION: Father Status: Cause of [...] Diagnosis Age At Onset Information not available MEDICATIONS HOME MEDICATIONS Status RXNORM [facility] Medication Dose Route Frequency Dates Comments Reported By Updated By Active [id number] 11792 81929 7 Jardiance 25 mg tablet 1.0 TAB ORAL DAILY Last Dose: [id number] on January 10, 2025 8:54:28 PM [facility] Active 715472 44304 99116 0 levetiraceta m 500 mg tablet 1.0 TAB ORAL DAILY Last Dose: [id number] on January 10, 2025 8:54:29 PM [facility] Active 273215 56603 46455 1 topiramate 100 mg tablet 1.0 TAB ORAL DAILY Last Dose: [id number] on January 10, 2025 8:54:29 PM [facility] Active 501462 34436 94548 0 gabapentin 600 mg tablet 1.0 TAB ORAL 5XD Last Dose: [id number] on January 10, 2025 8:54:29 PM [place] Active 537637 95991 27690 1 meclizine 25 mg tablet 1.0 TAB ORAL PRN Last Dose: [id number] on January 10, 2025 8:54:29 PM [place] Active 1439164 27690 93025 5 Tresiba FlexTouch U-100 100 unit/mL (3 mL) Insulin Pen 60.0 UNT SUBCUT ANEOUS DAILY Last Dose: [id number] on January 10, 2025 8:54:30 PM [place] Active FreeT extMe d fenofibrate oral 145 1.0 CAP DAILY Last Dose: [id number] on January 10, 2025 8:54:30 PM [place] Active 604506 23455 72525 1 ezetimibe 10 mg tablet 1.0 TAB ORAL DAILY Last Dose: [id number] on January 10, 2025 8:54:30 PM [place] Active 403148 77876 20886 0 Pepcid 20 mg tablet 1.0 TAB ORAL DAILY Last Dose: [id number] on January 10, 2025 8:54:30 PM [place] Active 994099 89832 65637 1 Novolin 70/30 U-100 Insulin 100 unit/mL (70-30) suspension 20.0 UNT SUBCUT ANEOUS DAILY Last Dose: [id number] on January 10, 2025 8:54:30 PM [place] DISCHARGE MEDICATIONS Status RXNORM ND Medication Dose Route Frequency Dates Comments Physician Updated By No Discharge Medication Info rmation Available INPATIENT MEDICATIONS Status RXNORM [facility] Medication Dose Route Frequency Rat e Quantity Dates Comments Physician Updated By No Inpatient Medication Info rmation Available SOCIAL HISTORY SOCIAL HISTORY SNOMED-CT Social History Element Description Effective Dates Offered Cessation Comment UpdatedBy [id number] Current Tobacco smoking status Heavy Tobacco Smoker [id number] on January 10, 2025 8:55:08 PM [facility] [id number] Historical Tobacco smoking status Current Every Day Smoker 1.5 ppd [id number] on September 13, 2023 2:47:54 PM [facility] [id number] Historical Tobacco smoking status Former Smoker Yes 1 1/2 PPD CONVERSION on September 26, 2013 6:27:22 PM [facility] SOCIAL HISTORY - Gender Sex: Male SOCIAL HISTORY - Status : status i nformation is not available Intention in Next Year: intention information is not available SOCIAL HISTORY - Sexual Behavior Sexual Orientation Gender Identity SNOMED-CT Description SNO MED -CT Description Activity Level No of Partners Partner Type UpdatedBy Information is not available VITAL SIGNS PATIENT VITAL SIGNS This section displays the mo st recent value for each vital sign as of January 14, 2025 5:20:48 AM UTC Loinc Code Vital Sign Activity Date Result Updated By 8310-5 Body temperature January 10, 2025 8:4 1:33 PM UTC 97.8 [degF] [id number] on January 11, 2025 9:10:39 PM UTC 99646-8 Body weight Measured January 10, 2025 8:43:57 PM UTC 109.0 kg (240.0 lb) [id number] on January 10, 2025 8:43:57 PM UTC 8462-4 Diastolic blood pressure January 10, 2025 8:41:33 PM UTC 69.0 mm[Hg] [id number] on January 11, 2025 9:10:39 PM UTC 8867-4 Heart rate January 10, 2025 9:06 :00 PM UTC 91 /min [id number] on January 11, 2025 9:10:40 PM UTC 11302-9 Oxygen saturation in Arterial blood by Pulse oximetry January 10, 2025 9:06:00 PM UTC 94.0 % [id number] on January 11, 2025 9:10:40 PM UTC 9279-1 Respiratory rate January 10, 2025 8:4 1:33 PM UTC 22 /min [id number] on January 11, 2025 9:10:39 PM UTC 8480-6 Systolic blood pressure January 10, 2025 8:41:33 PM UTC 126.0 mm[Hg] [id number] on January 11, 2025 9:10:39 PM UTC PEDIATRIC GROWTH CHART - VITAL SIGNS This section displays Head C ircumference Percentile, Weight for Length Percentile and BMI Percentile Loinc Code Pediatric Measure Age (Months) Result Updat ed By No Pediatric Growth Chart Pe rcentile Information Available. HEALTH CONCERNS Problems Concern Status Health Concern problem infor mation not available. Smoking Status Status Years Used Consumed packs p er day Health Concern smoking histo ry information not available. Family History Concern Status Health Concern family histor y information not available. ENCOUNTERS ENCOUNTER INFORMATION Reason for Visit SHORTNESS OF BREATH Admission January 10, 2025 8:29:[address] [address] Discharge January 10, 2025 9:10:00 PM [facility] DISCH ARGED TO HOME OR SELF CARE ENCOUNTER DIAGNOSES Notes information is not livier ilable. Code System Diagnosis Onset Date Diagnosis information is not available. ABSTRACT DIAGNOSES Code System Diagnosis Updated By R05.9 ICD10 COUGH, UNSPECIFIED [id number] o n January 14, 2025 5:20:03 AM [facility] R06.02 ICD10 SHORTNESS OF BREATH [id number] on January 14, 2025 5:20:03 AM [facility] R06.2 ICD10 WHEEZING [id number] on January 14, 2025 5:20:03 AM [facility] J44.1 ICD10 CHRONIC OBSTRUCT DOLLY PULMONARY DISEASE WITH (ACUTE) EXACERBATION [id number] on January 14, 2025 5:20:03 AM [facility] E11.9 ICD10 TYPE 2 DIABETES MELLITUS WITHOUT COMPLICATIONS [id number] on January 14, 2025 5:20:03 AM [facility] F17.210 ICD10 NICOTINE DEPENDE NCE, CIGARETTES, UNCOMPLICATED [id number] on January 14, 2025 5:20:03 AM [facility] Z79.84 ICD10 GROUP HOME (CURRE NT) USE OF ORAL HYPOGLYCEMIC DRUGS [id number] on January 14, 2025 5:20:03 AM [facility] Z79.4 ICD10 GROUP HOME (CURRENT) USE OF I NSULIN [id number] on January 14, 2025 5:20:03 AM [facility] CARE TEAM Care Tax Expert Role LIOR ALEMAN Primary Attending LIOR ALEMAN Admitting LIRO ALEMAN Referring JUAN MANUEL MULLINS Primary Care CARE TEAM CARE research lab assistant Role on Team Status Start Date End Date Update d By LOVE ARZOLA Referring normal January 10, 2025 9:03:04 PM [facility] January 10, 2025 9:10:00 PM [facility] [id number] on January 10, 2025 9:03:04 PM [facility] LOVE ARZOLA Attending normal January 10, 2025 9:03:04 PM [facility] January 10, 2025 9:10:00 PM [facility] [id number] on January 10, 2025 9:03:04 PM [facility] LOVE ARZOLA Admitting normal January 10, 2025 9:03:04 PM [facility] January 10, 2025 9:10:00 PM [facility] [id number] on January 10, 2025 9:03:04 PM [facility] SUSANNA ZAMBRANO MD [facility] normal January 10 8:29:22 PM [facility] January 10, 2025 9:10:00 PM [facility] [id number] on January 10, 2025 9:03:04 PM [facility]
--- NOTE | 2025-01-25 08:44 | MR_ITS ---
FINAL REPORT TECHNIQUE: Multiplanar MR without contrast CLINICAL HISTORY: TITANIUM PLATE IN HEAD*RADICULOPATHY. WHEN TURNING HEAD TO THE RIGHT, LEFT ARM WILL GO NUMB. FINDINGS: Limited images of the posterior fossa are unremarkable. Moderate motion artifact is identified. Alignment is normal. Cervical spinal cord shows normal signal and contour. C2-3: Mild annular disc bulge. C3-4: Mild annular disc bulge. Mild bilateral neuroforaminal narrowing. C4-5: Moderate annular disc bulge with endplate spurring. Moderate central canal stenosis. Severe bilateral neuroforaminal narrowing. C5-6: Moderate annular disc bulge with endplate spurring, asymmetric to the right. Moderate central canal stenosis. Right lateral recess stenosis. Severe right and moderate left neuroforaminal narrowing. C6-7: Moderate annular disc bulge. Mild central canal stenosis. Severe left and moderate right neuroforaminal narrowing. C7-T1: Unremarkable IMPRESSION: Significant degenerative changes with canal stenosis at C4-5, C5-6, and C6-7. Reviewed, Interpreted and Dictated by Robert Maldonado MD Transcribed by Lee Ann Rogers Authenticated and [facility]
--- OUTSIDE RECORDS SUMMARY | 2025-01-25 08:44 | XMS_ITS | Continuity of Care Document ---
Author Organization [facility] Phone Care Team Providers Care Sous Chef Kitchen Manager Name Role Phone JUAN MANUEL MULLINS Admitting JUAN MANUEL MULLINS Unavailable JUAN MANUEL MULLINS Primary Care JUAN MANUEL MULLINS Primary Attending [phone] ALLERGIES AND ADVERSE REACTIONS ALLERGIES AND ADVERSE REACTIONS Code System Allergy Substance Adverse Reaction Date Reaction (Severity) Comment Status Reported By Updated By No Known Allergies [id number] on September 02, 2021 10:46:58 PM [facility] FAMILY HISTORY RELATION: Father Status: Cause of [...] Information is not available RADIOLOGY RESULTS ORDER 100: CT CERVICL WO (LO INC: [id number]) ORDER DATE: January 01, 2025 1:50:00 PM [facility] PERFORMING LAB: [address] [id number] Final Result Date: January 01, 2025 1:59:[address] [place] [address] Name: DEANDRE MCCLELLAN Exam Date: 01/01/2025 : 1965 Age 59 years Gender: M Physician: JUAN MANUEL MULLINS Facility: [facility] Facility HSV: Outpatient Exam: CT CERVICL WO PROCEDURE DESCRIPTION: CT CERVICAL SPINE WITHOUT IV CONTRAST CLINICAL INDICATION: Pain in neck radiating down to shoulder. COMPARISON: XR Cervical Spine 12/20/2024, CT Brain Head 03/01/2016, CT Neck Soft Tissue 08/10/2012. The CT exam was performed using one or more of the following dose reduction techniques: Automated exposure control, adjustment of the mA and/or kV according to the patient's size, or use of iterative reconstruction technique. FINDINGS: There is no atlantooccipital subluxation. There is stable reversal of normal cervical lordosis. There is no evidence of acute fracture of the skull base, occipital condyles, or cervical spine. There are multilevel endplate changes of the cervical spine. There are bilateral intra-articular facet degenerative change. At C2-3: There is a mild disc bulge. There is mild bilateral neural foraminal narrowing. There is mild spinal canal narrowing. At C3-4: There is a mild disc bulge. There is mild bilateral neural foraminal narrowing. There is mild spinal canal narrowing. At C4-5: There is a mild disc bulge. There is moderate uncovertebral degenerative disease. There is moderate bilateral neural foraminal narrowing. There is mild spinal canal narrowing. At C5-6: There is a mild disc bulge. There is mild uncovertebral and facet arthropathy. There is moderate bilateral neural foraminal narrowing. There is mild spinal canal narrowing. At C6-7: There is a mild disc bulge. There is mild uncovertebral and facet arthropathy. There is mild bilateral neural foraminal narrowing. There is moderate spinal canal narrowing. At C7-T1: The disc is unremarkable. There is no spinal canal or neural foraminal narrowing. IMPRESSION: Multilevel degenerative changes of the cervical spine as described above. Electronically signed by: Uli Ramos MD 01/02/2025 10:18 AM EDT Dictated By: Uli Ramos Transcribed By: Transcribed On: 01/01/2025 9:59 AM Electronically signed by: Uli Ramos 01/01/2025 Legally authenticated by KIESHA ALEJANDRA MD 2025-01-01 09:59:13 Thank you for referring VY DEANDRE to [facility]. Legally authenticated by KIESHA ALEJANDRA MD 2025-01-01 09:59:13 PATHOLOGY NARRATIVE RESULTS Information is not available [...] Description Effective Dates Offered Cessation Comment UpdatedBy [id number] Historical Tobacco smoking status Current Every Day Smoker 1.5 ppd [id number] on September 13, 2023 2:47:54 PM [facility] [id number] Historical Tobacco smoking status Former Smoker Yes 1 1/2 PPD CONVERSION o n September 26, 2013 6:27:22 PM [facility] SOCIAL HISTORY - Gender Sex: Male SOCIAL [...] available. ENCOUNTERS ENCOUNTER INFORMATION Reason for Visit Not Specified Admission January 01, 2025 1:38:[address] [address] Discharge January 01, 2025 6:38:00 PM [facility] DI SCHARGED TO HOME OR SELF CARE ENCOUNTER DIAGNOSES Notes information is not livier ilable. Code System Diagnosis Onset Date Diagnosis information is not available. ABSTRACT DIAGNOSES Code System Diagnosis Updated By M54.2 ICD10 CERVICALGIA [id number] on January 04, 2025 5:46:42 AM [facility] M25.511 ICD10 PAIN IN RIGHT SHOULDER [id number] on January 04, 2025 5:46:42 AM [facility] M47.812 ICD10 SPONDYLOSIS WITH OUT MYELOPATHY OR RADICULOPATHY, CERVICAL REGION [id number] on January 04, 2025 5:46:42 AM [facility] M25.511 ICD10 PAIN IN RIGHT SHOULDER [id number] on January 04, 2025 5:46:42 AM UTC M54.2 ICD10 CERVICALGIA [id number] on January 04, 2025 5:46:42 AM [facility] W19.XXXA ICD10 UNSPECIFIED FALL, INITIAL EN COUNTER [id number] on January 04, 2025 5:46:42 AM [facility] CARE TEAM Care Sous Chef Kitchen Manager Role JUAN MANUEL MULLINS Admitting JUAN MANUEL MULLINS Referring JUAN MANUEL MULLINS Primary Care JUAN MANUEL MULLINS Primary Attending CARE TEAM CARE mold capper Role on Team Status Start Date End Date Update d By SUSANNA ZAMBRANO MD PCP normal December 26, 2024 5:39:11 PM [place] January 01, 2025 6:38:00 PM [facility] [id number] on December 26, 2024 5:39:11 PM [facility] SUSANNA ZAMBRANO MD Referring normal December 26, 2024 5:39:11 PM [facility] January 01, 2025 6:38:00 PM [facility] [id number] on December 26, 2024 5:39:11 PM [facility] SUSANNA ZAMBRANO MD Attending normal December 26, 2024 5:39:11 PM [facility] January 01, 2025 6:38:00 PM [place] [id number] on December 26, 2024 5:39:11 PM [facility] SUSANNA ZAMBRANO MD Admitting normal December 26, 2024 5:39:11 PM [facility] January 01, 2025 6:38:00 PM [facility] [id number] on December 26, 2024 5:39:11 PM [facility]
== END 2025-01-25 23:59 | disposition home or self-care (01) ==
LOC: RAD 08:42
PROVIDERS: PCP Internal Medicine Adolescent Medicine; Visit Provider Nurse Practitioner
DX: M47.22 Other spondylosis with radiculopathy, cervical region (principal); M48.02 Spinal stenosis, cervical region; Z96.7 Presence of other bone and tendon implants
CPT/HCPCS: 72141